=== PATIENT | female | born 1950 | race Hispanic/Latino ===

== ENCOUNTER 2018-01-10 06:19 | Day surgery (SDC) | payer MEDICARE ==
[~2018-01-10] VITALS: Ht 142.2 cm; Wt 108.8 kg
[2018-01-10] VITALS (15 sets, daily range): BP systolic 107–160; BP diastolic 53–75
[~2018-01-10 06:19] MED LIST: SODIUM CHLORIDE 0.9% 1000ML 1,000 ML IV ONE
[2018-01-10] MEDS ORDERED: IOHEXOL-350 50ML VIAL IV ONE (06:54)
[2018-01-10] MEDS ORDERED: PROPOFOL 1000 MG/100 ML 100 ML IV ONE (07:15)
[2018-01-10] MEDS ORDERED: AEC81 PO (07:24)
[2018-01-10] MEDS ORDERED: FERR-6 PO (07:24)
[2018-01-10] MEDS ORDERED: FURO20TA4 PO (07:24)
[2018-01-10] MEDS ORDERED: LISI-617 PO (07:24)
[2018-01-10] MEDS ORDERED: URSO300C4 PO (07:24)
[2018-01-10] MEDS ORDERED: SITA100T12 PO (07:24)
[2018-01-10] MEDS ORDERED: LEVO200T10 PO (07:24)
[2018-01-10] MEDS ORDERED: METF500T7 PO (07:24)
[2018-01-10] MEDS ORDERED: SIMV40TA5 PO (07:24)
[2018-01-10] MEDS ORDERED: GLUCAGON 1MG KIT 1 MG ML ONE (07:43)
[2018-01-10] MEDS ORDERED: INDOMETHACIN 50 MG SUPP.RECT RC SCH (07:45)
== END 2018-01-10 10:44 | disposition home or self-care (01) ==
LOC: DAH 06:19 → ENDO 06:19
PROVIDERS: ATTEND Internal Medicine
DX: T85.590A Other mechanical complication of bile duct prosthesis, initial encounter (principal); K80.50 Calculus of bile duct without cholangitis or cholecystitis without obstruction; E11.9 Type 2 diabetes mellitus without complications; K74.60 Unspecified cirrhosis of liver; E66.01 Morbid (severe) obesity due to excess calories; D64.9 Anemia, unspecified; E03.9 Hypothyroidism, unspecified; Z98.890 Other specified postprocedural states; Z79.899 Other long term (current) drug therapy
CPT/HCPCS: 43265; 43273; 43275; 74330; 82948 ×2; 93005; A4606; C1769 ×2; J2704; J7030; Q9967; J1610